=== PATIENT | female | born 1955 | race Caucasian/White ===

== ENCOUNTER 2017-12-04 17:59 | Emergency (ER) | payer SELFPAY | END 2017-12-04 19:08 | disposition home or self-care (01) | LOC: ERS 17:59 | DX: T82.838A Hemorrhage due to vascular prosthetic devices, implants and grafts, initial encounter (principal); F17.210 Nicotine dependence, cigarettes, uncomplicated; Z79.899 Other long term (current) drug therapy | CPT/HCPCS: 99283 ==

== ENCOUNTER 2020-05-20 17:29 | Inpatient (IN) | payer OTHER, SELFPAY ==
[~2020-05-20 17:29] MED LIST: Iopamidol-370 76% 500 ML 1 ML ONE
[2020-05-20 18:25] LABS: #Eosinphils 0.2 thou/uL (0.0-0.7); #Lymphocytes 1.9 thou/uL (1.20-3.40); #Monocytes 0.8 thou/uL (0.11-0.59); #Neutrophils 5.6 thou/uL (1.40-6.50); %Basophils 0.5 % (0.0-1.0); %Eosinophils 2.3 % (0.0-10.0); %Lymphocytes 22.5 % (21.0-51.0); %Monocytes 9.6 % (0.0-10.0); %Neutrophils 65.1 % (42.0-75.0); Hemoglobin 13.4 g/dL (12.0-16.0); Mean Corpuscular HGB CONC 32.8 g/dL (32.0-36.0); Mean Corpuscular Hemoglobin 31.6 pg (27.0-31.0); Mean Corpuscular Volume 96.5 fL (78.0-98.0); Mean Platelet Volume 7.1 fL (7.4-10.4); Platelet Count 315 thou/uL (130-400); RBC Distribution Width 14.4 % (11.5-14.5); Red Blood Cell (RBC) Count 4.22 mill/uL (4.20-5.40); White Blood Cell (WBC) Count 8.6 thou/uL (4.8-10.8)
--- NOTE | 2020-05-20 18:26 | RAD ---
PORTABLE CHEST: 05/20/20 INDICATION: Weakness. COMPARISON: Comparison made to chest film of 11/12/16. There is a mass-like density in the medial right lung base which is new from prior exam. Mediport cat heter appears in adequate position. The left lung appears clear. Correlation made to CT abdomen and pelvis 11/12/16 which contained images through the lung bases. A pl eural base mass in the medial right lung base was present at that time. Current exam would indicate e nlargement of this mass since that study. IMPRESSION: Enlarging mass in the medial right lung base. POS: AGW
[2020-05-20 18:49] LABS: PTT 31.2 sec (22.9-36.1); Prothrombin Time 12.8 sec (12.0-14.7)
[2020-05-20 18:50] LABS: ALT (SGPT) 13 U/L (8-55); AST (SGOT) 26 U/L (5-34); Albumin 3.9 g/dL (3.4-4.8); Alkaline Phosphatase 136 U/L (40-110); Anion Gap 11 mmol/L (10-20); BUN (Urea Nitrogen) 9 mg/dL (9.8-20.1); Bilirubin, Total 0.3 mg/dL (0.2-1.2); CK (CPK) 103 U/L (29-168); Calc. Creatinine Clearance 0 mL/min (70-130); Calcium 10.3 mg/dL (7.8-10.44); Carbon Dioxide 29 mmol/L (23-31); Chloride 104 mmol/L (98-107); Estimated GFR-MDRD 72; Globulin 3.8 g/dL (2.4-3.5); Glucose 99 mg/dL (80-115); Lipase 11 U/L (8-78); Potassium 4.3 mmol/L (3.5-5.1); Protein, Total 7.7 g/dL (6.0-8.3); Sodium 140 mmol/L (136-145)
[2020-05-20 19:10] LABS: Bacteria/HPF None Seen HPF (None Seen); Bilirubin Negative (Negative); Blood, Urine 2+ (Negative); Clarity Clear (Clear); Glucose, Urine (Dipstick) Normal (Negative); Ketone, Urine Negative (Negative); Leukocyte Negative Leu/uL (Negative); Mucous/LPF 1+ LPF (<2+); Nitrite Negative (Negative); Protein, Urine (Dipstick) 10 mg/dL (Neg-Trace); RBC/HPF 0-3 HPF (0-3); Specific Gravity, Urine 1.029 (1.002-1.036); Urobilinogen Normal mg/dL (Less than 2); WBC/HPF 0-3 HPF (0-3); pH, Urine 5.5 (5.0-9.0)
--- NOTE | 2020-05-20 19:47 | CT ---
CT HEAD WITHOUT CONTRAST: 05/20/20 INDICATIONS: Weakness. There are no comparison studies. CT scan abdomen 11/12/16 demonstrated a mass involving the sigmoid colon. Presumed history of colon ca ncer although this is not provided. FINDINGS: There is a mass in the right middle cranial fossa with surrounding vasogenic edema. Mass measures in the 2 cm range. There is another mass in the right frontal lobe superiorly with surrounding vasogenic edema. This mas s measures in the 1.6 cm range. No hemorrhage. No midline shift. Ventricles are normal size and position. Paranasal sinuses are clear . IMPRESSION: There are two masses identified. One in the right temporal lobe in the middle cranial fossa and anoth er in the right frontal lobe superiorly. There is surrounding vasogenic edema involving both of these masses. The findings would indicate metastatic disease to the brain. Recommend follow-up MRI brain w ith and without contrast for further evaluation. Findings were relayed to nurse practitioner in the Emergency Room taking are of this patient at the t [facility] of dictation. Code CR POS: JEREL
--- NOTE | 2020-05-20 20:41 | CT ---
CT arteriogram chest with IV contrast and 3-D imaging HISTORY: Dyspnea. Metastatic disease. COMPARISON: 11/12/2016 and 02/25/2016. FINDINGS: There is good contrast opacification pulmonary arteries and thoracic aorta. Endobronchial lesion to the right lower lobe results in peripheral atelectasis. Enlarged lymph node a t the right paratracheal level is 1.7 cm greatest diameter. Numerous lobular some spiculated masses are present throughout each lung. The most prominent are at t he left apex 1.5 cm, posterior aspect right upper lobe 1.6 cm, right anterior hilar 1.6 cm, and a left lower lobe 1.0 cm. Postoperative changes of the stomach are evident. Lobular heterogeneously enhancing soft tissue densi ty masses within the partially visualized upper retroperitoneum have the appearance of adrenal masses bilaterally. Within the partially visualized liver, multiple lobular hypodense masses are alex tly seen, involving each lobe. Sclerotic lesion in the right T6 transverse process is stable and likely represents a bone island. [place] btle hyperdensity along the inferior margin of the lateral aspect of the left seventh rib is stable and may represent a bone island. IMPRESSION : No evidence of pulmonary embolus. Widespread metastatic disease involving the lungs, mediastinum, and upper abdomen, significantly wors ened since the prior studies from 2015 and 2016. Component of significant right lower lobe atelectasis distal to an endobronchial lesion.
[2020-05-20] MEDS ORDERED: Dexamethasone 10 MG/ML VIAL ONE (20:42)
[2020-05-20] MEDS ORDERED: Ondansetron PF 4 MG/2 ML Vial IVP PRN (20:45)
[2020-05-20] MEDS ORDERED: Senokot S 8.6-50 MG TAB PO PRN (20:45)
[2020-05-20] MEDS ORDERED: Sodium Chloride 0.9% 1,000 ML IV SCH (20:45)
--- NOTE | 2020-05-20 21:06 | PDOC.HHP ---
Hospitalist HPI - History of Present Illness Left-sided weakness History of Present Illness: 64-year-old woman with a history of metastatic colon cancer to the lung and the liver, refractory to multiple chemotherapy regimens, followed at [facility], patient currently waiting for trial chemotherapy present to the emergency department with left arm and leg weakness which has been present for about 2 weeks.. Patient stated she only notices the weakness when she is active. She feels like dragging her left leg and arm. She denied any headache or vomiting. She denied any fever or problem with swallowing or speech. CT head done in the emergency department demonstrated significant metastatic lesions 1 in the right frontal lobe and the other in the right temporal lobe with surrounding vasogenic edema. Patient was also complaining of increasing shortness of breath. CTA thorax done demonstrated no pulmonary embolism but reported diffuse lung metastasis., Metastasis in the mediastinum and upper abdomen. Patient is hospitalized for further management. Hospitalist ROS - Review of Systems Other: Except as documented, all other systems reviewed and negative. - Medication Medications: Medication Instructions Recorded Confirmed Type Apixaban [Eliquis] 1 tablet PO BID 05/20/20 05/20/20 History Metoprolol Tartrate [Lopressor] 1 tablet PO DAILY 05/20/20 05/20/20 History Hospitalist History - Past Medical History Other Medical History: Hypertension, colon cancer with metastasis to the lung and liver. - Past Surgical History Other Surgical History: Appendectomy, gastric bypass surgery - Family History Other Family History: 2 brothers and 1 sister had colon cancer. Prostate cancer also run in the family as well as breast cancer. - Social History Smoking Status: Former smoker Alcohol: reports: None Drugs: reports: none - Exam General Appearance: NAD, awake alert Eye: PERRL, anicteric sclera ENT: normocephalic atraumatic, no oropharyngeal lesions, moist mucosa Neck: supple, symmetric, no JVD Heart: RRR, no murmur, no gallops Respiratory: rales (Diffuse bilateral crackles.) Gastrointestinal: soft, non-tender, non-distended Extremities: no cyanosis, no edema Skin: normal turgor, no rashes Neurological: cranial nerve grossly intact, no weakness, no focal deficits Musculoskeletal: normal tone, normal strength, generalized weakness Psychiatric: normal affect, normal behavior, A&O x 3 Hospitalist Results - Labs Result Diagrams: 05/21/20 04:25 05/21/20 04:25 Lab results: WBC 8.6 thou/uL (4.8-10.8) 05/20/20 18:13 Hgb 13.4 g/dL (12.0-16.0) 05/20/20 18:13 Hct 40.7 % (36.0-47.0) 05/20/20 18:13 MCV 96.5 fL (78.0-98.0) 05/20/20 18:13 Plt Count 315 thou/uL (130-400) 05/20/20 18:13 Neutrophils % 65.1 % (42.0-75.0) 05/20/20 18:13 Sodium 140 mmol/L (136-145) 05/20/20 18:13 Potassium 4.3 mmol/L (3.5-5.1) 05/20/20 18:13 Chloride 104 mmol/L (98-107) 05/20/20 18:13 Carbon Dioxide 29 mmol/L (23-31) 05/20/20 18:13 BUN 9 mg/dL (9.8-20.1) L 05/20/20 18:13 Creatinine 0.80 mg/dL (0.6-1.1) 05/20/20 18:13 Glucose 99 mg/dL (80-115) 05/20/20 18:13 Calcium 10.3 mg/dL (7.8-10.44) 05/20/20 18:13 Total Bilirubin 0.3 mg/dL (0.2-1.2) 05/20/20 18:13 AST 26 U/L (5-34) 05/20/20 18:13 ALT 13 U/L (8-55) 05/20/20 18:13 Alkaline Phosphatase 136 U/L (40-110) H 05/20/20 18:13 Creatine Kinase 103 U/L (29-168) 05/20/20 18:13 Troponin I Less than 0.010 ng/mL (< 0.028) 05/20/20 18:13 Serum Total Protein 7.7 g/dL (6.0-8.3) 05/20/20 18:13 Albumin 3.9 g/dL (3.4-4.8) 05/20/20 18:13 Lipase 11 U/L (8-78) 05/20/20 18:13 Urine Ketones Negative mg/dL (Negative) 05/20/20 18:50 Urine Blood 2+ (Negative) A 05/20/20 18:50 Urine Nitrite Negative (Negative) 05/20/20 18:50 Ur Leukocyte Esterase Negative [place]/uL (Negative) 05/20/20 18:50 Urine RBC 0-3 HPF (0-3) 05/20/20 18:50 Urine WBC 0-3 HPF (0-3) 05/20/20 18:50 Ur Squamous Epith Cells 4-6 HPF (0-3) A 05/20/20 18:50 Urine Bacteria None Seen HPF (None Seen) 05/20/20 18:50 Hospitalist H&P A/P - Problem (1) Metastasis to brain Code(s): C79.31 - SECONDARY MALIGNANT NEOPLASM OF BRAIN Status: Acute (2) Metastatic colon cancer in female Code(s): C18.9 - MALIGNANT NEOPLASM OF COLON, UNSPECIFIED Status: Acute (3) Left-sided weakness Code(s): R53.1 - WEAKNESS Status: Acute (4) History of DVT (deep vein thrombosis) Code(s): Z86.718 - PERSONAL HISTORY OF OTHER VENOUS THROMBOSIS AND EMBOLISM Status: Acute (5) HTN (hypertension) Code(s): I10 - ESSENTIAL (PRIMARY) HYPERTENSION Status: Chronic (6) Morbid obesity Code(s): E66.01 - MORBID (SEVERE) OBESITY DUE TO EXCESS CALORIES Status: Chronic - Plan Plan: Admit patient to the stroke unit. Start IV dexamethasone therapy. Consult to neurosurgery. Consult radiation oncology and hematology oncologist. Hold Eliquis for now. Heparin drip for now DCOA therapy per oncology recommendation. Obtain MRI of the brain to better delineate the metastatic lesions. Patient stated she would prefer any radiation treatment to be done at [facility].
[2020-05-20] MEDS ORDERED: Heparin 10,000 UNITS/ 10 ML VIAL SLOW IVP SCH (22:00)
[2020-05-20] MEDS ORDERED: Heparin 25,000 units/D5W 500 ML IVPB SCH (22:00)
[2020-05-20 22:20] LABS: Hemoglobin 12.6 g/dL (12.0-16.0); Platelet Count 301 thou/uL (130-400)
[2020-05-20 23:25] VITALS: BMI 49.8
[2020-05-20] MEDS: Famotidine/PF 20 mg/2ml Vial SLOW IVP SCH (23:58)
[2020-05-21 04:49] LABS: #Lymphocytes 0.8 thou/uL (1.20-3.40); #Monocytes 0.1 thou/uL (0.11-0.59); #Neutrophils 5.5 thou/uL (1.40-6.50); %Basophils 0.2 % (0.0-1.0); %Eosinophils 0.1 % (0.0-10.0); %Lymphocytes 11.7 % (21.0-51.0); %Neutrophils 87.1 % (42.0-75.0); Hemoglobin 12.7 g/dL (12.0-16.0); Mean Corpuscular HGB CONC 31.8 g/dL (32.0-36.0); Mean Corpuscular Hemoglobin 30.7 pg (27.0-31.0); Mean Corpuscular Volume 96.5 fL (78.0-98.0); Platelet Count 284 thou/uL (130-400); RBC Distribution Width 14.4 % (11.5-14.5); Red Blood Cell (RBC) Count 4.14 mill/uL (4.20-5.40); White Blood Cell (WBC) Count 6.4 thou/uL (4.8-10.8)
[2020-05-21 05:12] LABS: Anion Gap 12 mmol/L (10-20); BUN (Urea Nitrogen) 8 mg/dL (9.8-20.1); Calc. Creatinine Clearance 156 mL/min (70-130); Calcium 10.1 mg/dL (7.8-10.44); Carbon Dioxide 24 mmol/L (23-31); Chloride 107 mmol/L (98-107); Estimated GFR-MDRD 82; Glucose 165 mg/dL (80-115); Potassium 4.5 mmol/L (3.5-5.1); Sodium 138 mmol/L (136-145)
[2020-05-21] MEDS ORDERED: Dexamethasone 4 mg/ml Vial SLOW IVP SCH ×2 (09:00→12:00)
[2020-05-21] MEDS ORDERED: Acetaminophen 325 MG TAB PO PRN (09:59)
[2020-05-21] MEDS ORDERED: Ondansetron ODT 4 MG TAB PO PRN (10:00)
[2020-05-21] MEDS ORDERED: Senokot S 8.6-50 MG TAB PO SCH (10:02)
[2020-05-21] MEDS ORDERED: levETIRAcetam in NS 500 MG in Premix Bag 1 BAG IVPB SCH ×2 (10:15→21:00)
[2020-05-21] MEDS ORDERED: Lorazepam 1 MG TAB PO PRN (10:15)
[2020-05-21] MEDS: Famotidine/PF 20 mg/2ml Vial SLOW IVP SCH (10:22)
[2020-05-21] MEDS ORDERED: Metoprolol Tartrate 25 MG TAB PO SCH ×2 (11:30→21:00)
[2020-05-21 12:11] LABS: SARS-CoV-2 MS2 Positive; SARS-CoV-2 N Gene Negative; SARS-CoV-2 S Gene Negative; SARS-CoV-2 by NAA Not Detected (NotDetected); SARS-CoV-2 orf1ab Negative
[2020-05-21 12:27] VITALS: BP 138/83; TEMP 98.2
--- NOTE | 2020-05-21 13:04 | CON ---
DATE OF CONSULTATION: 05/21/2020 REASON FOR CONSULTATION: Metastatic malignancy to brain. HISTORY OF PRESENT ILLNESS: The patient is a 64-year-old woman with a history of metastatic colorectal cancer who presents with brain metastasis. She initially presented with widely metastatic colon cancer in 2016 and has since been cared for in the [facility]. She has failed multiple regimens and her tumor is resistant to multiple lines of therapy including FOLFOX, FOLFIRI, immunotherapy, and oral Lonsurf. She presented to her physician about 1 week ago in the [place] with some left arm weakness and a MRI of the brain was scheduled for this coming . Yesterday, she noticed some involuntary movements of the leg and left upper extremity without loss of consciousness, tongue biting, or bowel or bladder incontinence. She sought medical attention in the emergency room and a CT scan of the brain does reveal 2 metastatic lesions in the right temporal and right frontal lobe with surrounding vasogenic edema. She was admitted for further evaluation and has improved on dexamethasone. I am asked to see the patient to provide further recommendations regarding this malignancy. As her care has been entirely supervised by MD Cisneros in the [place], I discussed with her any wishes she may have at this time regarding further care. She is adamant about continuing care in the [facility] at the [place]. I discussed multiple options in that regard. I do think it is medically safe and appropriate to discharge her on oral dexamethasone and to have her follow up with her medical oncologist in the [place] early next week. He is aware of some focal neurological symptoms for which an MRI was scheduled this coming . Upon contacting her medical oncologist, he or she could determine whether a more urgent MRI is warranted. She is also quite adamant about pursuing radiation therapy in the [place] and I think this is appropriate given her relationship with that facility. After a long discussion, the patient and her daughter are comfortable with this approach and I will discuss this further with nursing staff and the hospitalists involved as there was some concern that inpatient transfer would be required. Thanks very much for allowing me to provide my recommendations. Freddie Reyes MD Job ID: [id number] MTDD
--- NOTE | 2020-05-21 17:21 | DIS ---
DATE OF ADMISSION: 05/21/2020 DATE OF DISCHARGE: 05/21/2020 DISCHARGE DISPOSITION: Home. FOLLOWUP: 1. Follow up with primary care physician at [facility] in 1 week. 2. Follow up with primary oncologist as soon as possible. DISCHARGE MEDICATIONS: 1. Dexamethasone 4 mg b.i.d. 2. Keppra 500 mg b.i.d. 3. Pepcid 20 mg b.i.d. 4. All other home medications were left unchanged. The patient was seen and examined on the day of discharge. Denies any new complaints. No chest pain, shortness of breath, palpitations, or new focal deficit reported. BRIEF HOSPITAL COURSE: The patient is a 64-year-old female with metastatic colon cancer, followed at [facility], presented to the emergency room with left-sided weakness that has been ongoing for last 2 weeks. The weakness got worse, for which she presented to the emergency room. A CT scan of the brain in the emergency room was consistent with two brain masses with vasogenic edema. One mass was in the right middle cranial fossa measuring approximately 2 cm range. Another mass was in right frontal lobe superiorly with surrounding vasogenic edema, measuring approximately 1.6 cm. The patient was evaluated by Oncology and Neurosurgery Service. She was unable to get an MRI due to extreme claustrophobia. The patient was scheduled for MRI at [facility] in next couple of days. An attempt was made to transfer the patient to [facility]. However, the patient decided to get discharged and follow up with [facility] as an outpatient. Neurosurgery and Oncology Service are okay with this plan. She has been started on dexamethasone along with Keppra for seizure prophylaxis. She had a brief intermittent jerking on the left side, probably due to focal seizure. She understands the risk associated with dexamethasone. Seizure precaution was emphasized. She was advised to seek medical attention. No driving until cleared by MD. FINAL DIAGNOSES: 1. Left-sided weakness secondary to brain mass. 2. Suspected metastatic cancer. 3. History of metastatic colon cancer followed at [facility]. 4. Suspected focal seizure. The patient has been started on Keppra. 5. Hypertension. 6. Morbid obesity with a BMI of 49.8. 7. Chronic kidney disease, stage 2. The patient understands the above plan of care. DIAGNOSTIC TESTS: Chest x-ray is showing enlarging mass in the medial right lung base. Job ID: [id number]
[2020-05-21] MEDS ORDERED: Famotidine 20 MG TAB PO SCH (21:00)
== END 2020-05-21 15:00 | disposition home or self-care (01) | DRG 54 ==
LOC: ERS 17:29 → 2SE 20:19 → OBSVTOIN 05-21 06:02
PROVIDERS: ADMIT Internal Medicine; ATTEND Internal Medicine
DX: C79.31 Secondary malignant neoplasm of brain (principal); G93.6 Cerebral edema; C18.9 Malignant neoplasm of colon, unspecified; C78.00 Secondary malignant neoplasm of unspecified lung; C78.7 Secondary malignant neoplasm of liver and intrahepatic bile duct; E66.01 Morbid (severe) obesity due to excess calories; I12.9 Hypertensive chronic kidney disease with stage 1 through stage 4 chronic kidney disease, or unspecified chronic kidney disease; N18.2 Chronic kidney disease, stage 2 (mild); Z20.828 Contact with and (suspected) exposure to other viral communicable diseases; Z68.42 Body mass index [BMI] 45.0-49.9, adult; Z79.01 Long term (current) use of anticoagulants; Z79.899 Other long term (current) drug therapy; Z90.49 Acquired absence of other specified parts of digestive tract; Z87.891 Personal history of nicotine dependence; Z86.718 Personal history of other venous thrombosis and embolism; Z93.3 Colostomy status
CPT/HCPCS: 36415; 70450; 71045; 71275; 80048; 80053; 81003; 81015; 82550; 83690; 83735; 84484; 85025; 85610; 85730; 87635; 93005; 96374; 96375; G0378; J1100; J1953; Q9967; S0028; U0003

== ENCOUNTER 2020-08-26 19:30 | Emergency (ER) | payer SELFPAY ==
[2020-08-26] MEDS ORDERED: Oxymetazoline HCl 0.05% (30 ML BOT) ONE (20:05)
[2020-08-26] MEDS ORDERED: Cefepime 2 GM VIAL ONE (20:19)
[2020-08-26] MEDS ORDERED: Vancomycin 1 GM/200 ML BAG ONE (20:19)
[2020-08-26 20:37] LABS: #Basophils 0.1 thou/uL (0.0-0.2); #Neutrophils 7.1 thou/uL (1.40-6.50); %Basophils 1.2 % (0.0-1.0); %Eosinophils 0.4 % (0.0-10.0); %Lymphocytes 19.5 % (21.0-51.0); %Monocytes 9.3 % (0.0-10.0); %Neutrophils 69.6 % (42.0-75.0); Hemoglobin 13.1 g/dL (12.0-16.0); Mean Corpuscular HGB CONC 32.1 g/dL (32.0-36.0); Mean Corpuscular Hemoglobin 29.3 pg (27.0-31.0); Mean Corpuscular Volume 91.4 fL (78.0-98.0); Mean Platelet Volume 6.6 fL (7.4-10.4); Platelet Count 301 thou/uL (130-400); RBC Distribution Width 16.4 % (11.5-14.5); Red Blood Cell (RBC) Count 4.46 mill/uL (4.20-5.40); White Blood Cell (WBC) Count 10.2 thou/uL (4.8-10.8)
[2020-08-26 20:43] LABS: PTT 23.3 sec (22.9-36.1); Prothrombin Time 13.7 sec (12.0-14.7)
[2020-08-26 20:52] LABS: Bacteria/HPF None Seen HPF (None Seen); Bilirubin Negative (Negative); Blood, Urine 1+ (Negative); Clarity Clear (Clear); Glucose, Urine (Dipstick) Normal (Negative); Ketone, Urine Negative (Negative); Leukocyte Negative Leu/uL (Negative); Nitrite Negative (Negative); Protein, Urine (Dipstick) 10 mg/dL (Neg-Trace); RBC/HPF 0-3 HPF (0-3); Specific Gravity, Urine 1.027 (1.002-1.036); Squamous Epithelial 0-3 HPF (0-3); Urobilinogen Normal mg/dL (Less than 2); WBC/HPF 0-3 HPF (0-3)
[2020-08-26 20:59] LABS: ALT (SGPT) 66 U/L (8-55); AST (SGOT) 49 U/L (5-34); Albumin 3.6 g/dL (3.4-4.8); Alkaline Phosphatase 247 U/L (40-110); Anion Gap 16 mmol/L (10-20); BUN (Urea Nitrogen) 23 mg/dL (9.8-20.1); Bilirubin, Total 0.3 mg/dL (0.2-1.2); Calc. Creatinine Clearance 0 mL/min (70-130); Calcium 10.2 mg/dL (7.8-10.44); Carbon Dioxide 22 mmol/L (23-31); Chloride 100 mmol/L (98-107); Globulin 3.8 g/dL (2.4-3.5); Glucose 123 mg/dL (80-115); Protein, Total 7.4 g/dL (5.8-8.1); Sodium 133 mmol/L (136-145)
--- NOTE | 2020-08-26 21:50 | CT ---
CT abdomen and pelvis with IV contrast HISTORY: Gluteal induration/abscess. Colon cancer with metastases. COMPARISON: 11/12/2016. 05/20/2020. FINDINGS: Endobronchial lesion to the posterior segment right lower lobe is present with peripheral a telectasis. A right infrahilar mass is 1.9 cm greatest diameter. Masses have enlarged significantly since the prior exam, with innumerable lesions throughout each lung. Large heterogeneous masses are also now present throughout the liver lobe, measuring up to 9.7 cm on the left and 11.6 cm on the right. Large bilateral adrenal heterogeneously enhancing masses, 6.1 cm on the left and 6.1 cm on the right with some calcification. Postoperative changes of the stomach and colon. Left upper quadrant ostomy with nonobstructed transve rse colon in a parastomal hernia. No evidence of complication. Degenerative changes lumbar spine. Fibroid involvement of the uterus, stable. Along the left intergluteal fold, there is very subtle stranding within the left subcutaneous tissue. No focal fluid collection, abscess, or extension to the deep musculature. IMPRESSION : Mild subcutaneous inflammation involving the left intergluteal fold. No focal abscess or deep tissue involvement. Severe, rapid worsening of metastatic disease of the chest and abdomen.
== END 2020-08-26 23:25 | disposition home or self-care (01) ==
LOC: ERS 19:30
DX: L03.317 Cellulitis of buttock (principal); R04.0 Epistaxis; F17.210 Nicotine dependence, cigarettes, uncomplicated; Z85.118 Personal history of other malignant neoplasm of bronchus and lung; Z85.05 Personal history of malignant neoplasm of liver; Z85.841 Personal history of malignant neoplasm of brain; Z86.711 Personal history of pulmonary embolism; Z79.899 Other long term (current) drug therapy; Z79.01 Long term (current) use of anticoagulants
CPT/HCPCS: 36415; 51701; 74177; 80053; 81003; 81015; 83605; 85025; 85610; 85730; 87040; 87086; 96365; 96367; J0692; J3370; Q9967